=== PATIENT | male | born 1970 | race African-American/Black ===

== ENCOUNTER 2021-09-06 03:08 | Emergency (ER) | payer BC ==
[2021-09-06 03:55] VITALS: BP 140/81; PULSE 90; TEMP 101.6; BMI 38.0
[2021-09-06] MEDS ORDERED: DEXAMETHASONE SOD PHOSPHATE 10 MG/1 ML VIAL IVPUSH ONE (04:34)
[2021-09-06] MEDS ORDERED: KETOROLAC TROMETHAMINE 15 MG/ML VIAL IVPUSH ONE (04:34)
[2021-09-06] MEDS ORDERED: KETOROLAC TROMETHAMINE 15 MG/ML VIAL IM ONE (04:36)
[2021-09-06] MEDS ORDERED: KETOROLAC TROMETHAMINE 15 MG/ML VIAL ONE (04:43)
[2021-09-06] MEDS ORDERED: DEXAMETHASONE SOD PHOSPHATE 10 MG/1 ML VIAL ONE (04:43)
[2021-09-07 12:08] LABS: SARS-CoV-2 NAA Not Detected (Not Detected)
== END 2021-09-06 06:45 | disposition home or self-care (01) ==
LOC: JER 03:08
PROC: 3E033GC Introduction of Other Therapeutic Substance into Peripheral Vein, Percutaneous Approach (ICD-10-PCS; principal; 2021-09-06)
PROC: 3E023GC Introduction of Other Therapeutic Substance into Muscle, Percutaneous Approach (ICD-10-PCS; principal; 2021-09-06)
DX: J11.1 Influenza due to unidentified influenza virus with other respiratory manifestations (principal)
CPT/HCPCS: 87651; 87804; 99284-25; C9803-CS; J1100; U0003; U0005